=== PATIENT | female | born 1990 | race Caucasian/White ===

== ENCOUNTER 2016-11-27 07:28 | Day surgery (SDC) | payer MEDICAID, OTHER ==
[~2016-11-27 07:28] MED LIST: Bupivacaine 0.5% 30 ML SDV ONE; Lidocaine 0.5% 50 ML SDV ONE; Midazolam 1 MG/ML 2 ML SDV ONE; Propofol 200 MG/20 ML SDV ONE; fentaNYL 100 MCG/2 ML SDV ONE
[2016-11-27] MEDS ORDERED: Sodium Chloride 0.9% 5 ML Syringe FLUSH PRN (07:30)
[2016-11-27] MEDS ORDERED: Lactated Ringers 1,000 ML IV SCH (07:30)
[2016-11-27] MEDS ORDERED: Bacitracin/Neomycin/Polymyxin B Oint 0.9 GM U/D Packet ONE (07:54)
[2016-11-27] MEDS ORDERED: Propofol 200 MG/20 ML SDV ONE (07:54)
--- NOTE | 2016-11-27 08:09 | PCM.PN ---
- General Info Date of Service: 11/27/16 - Review of Systems Systems Review Comment:: 26 y/o female here for right carpal tunnel release. She has a history of carpal tunnel symptoms on her right hand not responding to conservative management. The site of the proposed surgery is confirmed with the patient and marked. I have discussed the proposed carpal tunnel release with the patient. Expectations and instructions reviewed. She agrees to proceed accepting risks. - Patient Data Vitals - Most Recent: Last Vital Signs Temp 97.9 F 11/27/16 08:04 Pulse 78 11/27/16 08:04 Resp 14 11/27/16 08:04 BP 108/67 11/27/16 08:04 Pulse Ox 100 11/27/16 08:04 Weight - Most Recent: 71.668 kg Lab Results Last 24 Hours: Laboratory Results - last 24 hr 11/27/16 Range/Units 07:45 Urine HCG, Qual Negative (NEGATIVE) Med Orders - Current: Current Medications Lactated Ringer's (Ringers, Lactated) 1,000 mls @ 50 mls/hr IV ASDIRECTED MAGDALENA Last Admin: 11/27/16 07:58 Dose: 50 mls/hr Sodium Chloride (Syrex Flush) 5 ml FLUSH Q8HR PRN PRN Reason: Keep Vein Open Discontinued Medications Fentanyl (Sublimaze) Confirm Administered Dose 100 mcg .ROUTE .STK-MED ONE Stop: 11/27/16 06:47 Lidocaine HCl (Xylocaine-Mpf 0.5%) Confirm Administered Dose 50 ml .ROUTE .STK- MED ONE Stop: 11/27/16 06:47 Midazolam HCl (Versed 1 Mg/Ml) Confirm Administered Dose 2 mg .ROUTE .STK-MED ONE Stop: 11/27/16 06:47 Propofol (Diprivan 20 Ml) Confirm Administered Dose 200 mg .ROUTE .STK-MED ONE Stop: 11/27/16 06:47 - Problem List Review Problem List Initiated/Reviewed/Updated: Yes - My Orders Last 24 Hours: My Active Orders 11/27/16 07:30 Antiembolic Devices [RC] PER UNIT ROUTINE Patient to Empty Bladder [RC] ASDIRECTED Peripheral IV Care [RC] . DIRECTED Verify Patient Consent Obtain [RC] ASDIRECTED Lactated Ringers [Ringers, Lactated] 1,000 ml IV ASDIRECTED Sodium Chloride 0.9% [Syrex Flush] 5 ml FLUSH Q8HR PRN Peripheral IV Insertion Adult [OM.PC] Routine Sequential Compression Device [OM.PC] Routine 11/27/16 Breakfast Nothing Per Oral Diet [DIET] - Assessment Assessment:: Right Carpal Tunnel Syndrome - Plan Plan:: Right Carpal Tunnel Release
[2016-11-27] MEDS ORDERED: fentaNYL 100 MCG/2 ML SDV IV ONE (08:26)
[2016-11-27] MEDS ORDERED: Propofol 200 MG/20 ML SDV IV ONE (08:26)
[2016-11-27] MEDS ORDERED: Midazolam 1 MG/ML 2 ML SDV IV ONE (08:26)
[2016-11-27] MEDS ORDERED: Ondansetron 4 MG/2 ML SDV IV ONE (08:26)
[2016-11-27] MEDS ORDERED: Bupivacaine 0.5% 30 ML SDV INFILT ONE ×2 (08:47)
[2016-11-27] MEDS ORDERED: Bacitracin/Neomycin/Polymyxin B Oint 0.9 GM U/D Packet TOP ONE (09:06)
--- NOTE | 2016-11-27 09:27 | PCM.OPNOTE ---
- General Post-Op/Procedure Note Date of Surgery/Procedure: 11/27/16 Operative Procedure(s): Right Carpal Tunnel Release Findings: Thick Right Transverse Carpal Ligament causing pressure on the underlying median nerve Pre Op Diagnosis: Right Carpal Tunnel Syndrome Post-Op Diagnosis: Same Anesthesia Technique: Regional Block Primary Surgeon: Bijan Rosario Pathology: none Output, Urine Amount: 0 EBL in mLs: 2 Complications: None Condition: Good
[2016-11-27 11:23] VITALS: BP 99/63
--- NOTE | 2016-11-27 17:13 | OR ---
DATE OF SURGERY: 11/27/2016 SURGEON: Bijan Rosario MD PREOPERATIVE DIAGNOSIS: Right carpal tunnel syndrome. POSTOPERATIVE DIAGNOSIS: Right carpal tunnel syndrome. OPERATION PERFORMED: Right carpal tunnel release. INDICATIONS FOR SURGERY: This 26-year-old female has developed symptoms of right carpal tunnel syndrome which are not responding well to conservative management. She has already had her left carpal tunnel release with good results and she comes today for right carpal tunnel release. FINDINGS: The patient's right transverse carpal ligament is thick causing pressure on the underlying median nerve. Structures otherwise appear normal. PROCEDURE IN DETAIL: The patient was taken to the operating room. She was given IV regional anesthesia of the right hand which was then sterilely prepped with Betadine and draped. A longitudinally oriented curvilinear incision was made along the palmar surface of the right wrist. Dissection proceeded down onto the transverse carpal ligament which was incised over and parallel to the course of the underlying median nerve. The ligament was completely divided and/or any potentially constricting bands proximally and distally at this level. Great care was used to avoid any injury to the underlying nerve or its branches. Once the nerve roots have been completely released and with no sign of any complicating process, the wound was irrigated and the skin was approximated with interrupted 4-0 Prolene in a mattress technique. Antibiotic ointment and sterile dressing were placed which was held in position with an Nestor bandage. The tourniquet was released, and the patient was taken from the operating room in satisfactory condition. ESTIMATED BLOOD LOSS: 2 mL. COMPLICATIONS: None. PROGNOSIS: Good. /[id number]/MODL MTDD
== END 2016-11-27 10:30 | disposition home or self-care (01) ==
LOC: KA.SDS 07:28
PROVIDERS: ATTEND Surgery
DX: G56.01 Carpal tunnel syndrome, right upper limb (principal); Z91.040 Latex allergy status; Z91.09 Other allergy status, other than to drugs and biological substances; Z79.899 Other long term (current) drug therapy; Z98.890 Other specified postprocedural states
CPT/HCPCS: 64721; 81025; J2250; J2405; J2704; J3010; J7120

== ENCOUNTER 2017-10-15 12:30 | Day surgery (SDC) | payer MEDICAID, OTHER ==
[~2017-10-15 12:30] MED LIST changes: -Bupivacaine 0.5% 30 ML SDV ONE; -Lidocaine 0.5% 50 ML SDV ONE; -Midazolam 1 MG/ML 2 ML SDV ONE; -fentaNYL 100 MCG/2 ML SDV ONE
[2017-10-15] MEDS ORDERED: Propofol 200 MG/20 ML SDV IV ONE (13:29)
[2017-10-15] MEDS ORDERED: Lactated Ringers 1,000 ML IV SCH (13:30)
[2017-10-15] MEDS ORDERED: Sodium Chloride 0.9% 5 ML Syringe FLUSH PRN (13:30)
--- NOTE | 2017-10-15 13:33 | PCM.PN ---
- General Info Date of Service: 10/15/17 - Review of Systems Systems Review Comment:: 27-year-old female referred for colonoscopy. She had a recent episode of a large amount of rectal bleeding. This is associated with lower abdominal pain. The bleeding has stopped but she does have continued lower abdominal pain. She is medically stable to proceed with colonoscopy today. There is been no significant recent change in her health status. I have discussed the proposed colonoscopy with the patient. Risks reviewed included but were not limited to bleeding and GI injury. She agrees to proceed. - Patient Data Vitals - Most Recent: Last Vital Signs Temp 98.6 F 10/15/17 13:04 Pulse 60 10/15/17 13:04 Resp 20 10/15/17 13:04 BP 106/39 L 10/15/17 13:04 Pulse Ox 100 10/15/17 13:04 Weight - Most Recent: 68.946 kg Lab Results Last 24 Hours: Laboratory Results - last 24 hr 10/15/17 Range/Units 13:00 HCG, Qual Negative (NEGATIVE) Med Orders - Current: Current Medications Lactated Ringer's (Ringers, Lactated) 1,000 mls @ 50 mls/hr IV ASDIRECTED MAGDALENA Last Admin: 10/15/17 13:06 Dose: 50 mls/hr Sodium Chloride (Syrex Flush) 5 ml FLUSH Q8HR PRN PRN Reason: Keep Vein Open Discontinued Medications Propofol (Diprivan 20 Ml) Confirm Administered Dose 400 mg .ROUTE .STK-MED ONE Stop: 10/15/17 12:28 - Problem List Review Problem List Initiated/Reviewed/Updated: Yes - My Orders Last 24 Hours: My Active Orders 10/15/17 13:30 Peripheral IV Care [RC] . DIRECTED Lactated Ringers [Ringers, Lactated] 1,000 ml IV ASDIRECTED Sodium Chloride 0.9% [Syrex Flush] 5 ml FLUSH Q8HR PRN Peripheral IV Insertion Adult [OM.PC] Routine 10/15/17 14:00 Patient to Empty Bladder [RC] ASDIRECTED 10/15/17 14:25 Verify Patient Consent Obtain [RC] ASDIRECTED 10/15/17 Breakfast Nothing Per Oral Diet [DIET] - Assessment Assessment:: Rectal bleeding - Plan Plan:: Colonoscopy
--- NOTE | 2017-10-15 14:02 | PCM.OPNOTE ---
- General Post-Op/Procedure Note Date of Surgery/Procedure: 10/15/17 Operative Procedure(s): Colonoscopy Findings: Normal Colon and Terminal Ileum Small internal hemorrhoids Pre Op Diagnosis: Rectal Bleeding Post-Op Diagnosis: Hemorrhoids Anesthesia Technique: MAC Primary Surgeon: Bijan Rosario Pathology: none Output, Urine Amount: 0 EBL in mLs: 0 Complications: None Condition: Good
[2017-10-15 18:39] VITALS: BP 98/64
--- NOTE | 2017-10-16 01:26 | OR ---
DATE OF SURGERY: 10/15/2017 SURGEON: Bijan Rosario MD REFERRING PROVIDER: YUNIER Arroyo PREOPERATIVE DIAGNOSIS: Rectal bleeding. POSTOPERATIVE DIAGNOSIS: Internal hemorrhoids. OPERATION PERFORMED: Colonoscopy. INDICATIONS FOR SURGERY: This 27-year-old female had a recent episode of a significant amount of rectal bleeding. This is associated with some lower abdominal pain. Diagnostic colonoscopy is planned. FINDINGS: No active bleeding is seen during today's exam. The patient does have small internal hemorrhoids. There are no visible signs of inflammation and the remainder of the colonic mucosa appears normal. The terminal ileum also appears normal without visible signs of inflammation or other pathology. PROCEDURE: The patient was taken to the operating room. She was given intravenous sedation, and with her in the left lateral decubitus position, digital rectal exam was performed showing no rectal masses. The Olympus colonoscope was inserted into the rectum. Retroflexed examination of the rectal canal was performed. The scope was then carefully advanced under direct visualization through the entire length of the colon until cecum was reached. Cecal acquisition was confirmed by noting the normal internal cecal anatomy including the appendiceal orifice and ileocecal valve. The ileocecal valve was cannulated and the terminal ileum was examined and found to be normal. The scope was then slowly withdrawn sequentially reexamining the colonic segments until the entire colon and rectum had been fully examined. The scope was then removed and the patient was taken from the operating room in satisfactory condition. ESTIMATED BLOOD LOSS: Zero. COMPLICATIONS: None. PROGNOSIS: Good. /[id number]/MODL
== END 2017-10-15 14:35 | disposition home or self-care (01) ==
LOC: KA.SDS 12:30
PROVIDERS: ATTEND Surgery
DX: K62.5 Hemorrhage of anus and rectum (principal); R10.30 Lower abdominal pain, unspecified; K64.8 Other hemorrhoids; F17.200 Nicotine dependence, unspecified, uncomplicated; F41.9 Anxiety disorder, unspecified; F32.9 Major depressive disorder, single episode, unspecified; F42.9 Obsessive-compulsive disorder, unspecified; Z79.899 Other long term (current) drug therapy; Z91.040 Latex allergy status
CPT/HCPCS: 36415; 84703; J2704; J7120

== ENCOUNTER 2018-07-31 05:27 | Emergency (ER) | payer SELFPAY ==
[2018-07-31 05:39] VITALS: BP 146/60
[2018-07-31] MEDS ORDERED: Sodium Chloride 0.9% 1,000 ML IV ONE (05:52)
[2018-07-31] MEDS ORDERED: Sodium Chloride 0.9% 10 ML Syringe FLUSH PRN (05:52)
[2018-07-31] MEDS ORDERED: Dexamethasone 4 MG/ML SDV IVPUSH ONE (05:53)
--- NOTE | 2018-07-31 05:59 | EDM.PDOC ---
ED HPI GENERAL MEDICAL PROBLEM - General Chief Complaint: General Stated Complaint: sore throat Time Seen by Provider: 07/31/18 05:47 Source of Information: Reports: Patient History Limitations: Reports: No Limitations - History of Present Illness INITIAL COMMENTS - FREE TEXT/NARRATIVE: Patient is a 28-year-old female who presents to the emergency department this morning with a complaint of difficulty swallowing and enlarged lymph nodes in neck. Patient states symptoms began 3 days ago and have progressively worsened. She's been taking acetaminophen and Motrin for relief. States she's had a low-grade fever. Patient woke up middle of night with difficulty swallowing and decided to present to the emergency department. Patient denies change in medication or consuming different food, history of allergic reaction, swallowing foreign body, any trauma, history of similar symptoms in the past, chest pain, or out of country travel. 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: Musculoskeletal History: Reports: Back Pain, Chronic, Other (See Below) Other Musculoskeletal History: Left carpal tunnel release Psychiatric History: Reports: ADD, ADHD - Infectious Disease History Infectious Disease History: Reports: Chicken Pox - Past Surgical History HEENT Surgical History: Reports: Adenoidectomy, Tonsillectomy Respiratory Surgical History: Reports: None GI Surgical History: Reports: Hernia Repair/Other Female Surgical History: Reports: Cystectomy Social & Family History - Family History Family Medical History: Noncontributory Cardiac: Reports: Heart Failure, High Cholesterol, Hypertension, PR Neurological: Reports: CVA Psychiatric: Reports: ADD, Anxiety, Autism, Depression Endocrine/Metabolic: Reports: Diabetes, type II Oncologic: Reports: Breast - Caffeine Use Caffeine Use: Reports: Coffee, Soda - Living Situation & Occupation Living situation: Reports: ED ROS GENERAL - Review of Systems Review Of Systems: ROS reveals no pertinent complaints other than HPI. Constitutional: Reports: Fever HEENT: Reports: Throat Pain, Throat Swelling Respiratory: Reports: No Symptoms Cardiovascular: Reports: No Symptoms Endocrine: Reports: No Symptoms GI/Abdominal: Reports: No Symptoms : Reports: No Symptoms Musculoskeletal: Reports: No Symptoms Skin: Reports: No Symptoms Neurological: Reports: No Symptoms Psychiatric: Reports: No Symptoms Hematologic/Lymphatic: Reports: No Symptoms Immunologic: Reports: No Symptoms ED EXAM, GENERAL - Physical Exam Exam: See Below Exam Limited By: No Limitations General Appearance: Alert, WD/WN, Mild Distress Eye Exam: Bilateral Eye: Normal Inspection Nose: Normal Inspection, Normal Mucosa, No Blood Throat/Mouth: Normal Lips, Normal Teeth, No Airway Compromise (. No stridor noted), Inflammation, Other (Tonsillar edema with exudates, trismus noted). No : Normal Inspection, Normal Oropharynx Head: Atraumatic, Normocephalic. No: Facial Swelling Neck: Lymphadenopathy (L), Lymphadenopathy (R) Respiratory/Chest: No Respiratory Distress, Lungs Clear, Normal Breath Sounds, No Accessory Muscle Use Cardiovascular: Regular Rate, Rhythm, No Murmur GI/Abdominal: Normal Bowel Sounds, Soft, Non-Tender Extremities: Normal Inspection Neurological: Alert, Oriented, Normal Cognition Psychiatric: Anxious Skin Exam: Warm, Dry, Intact, Normal Color, No Rash Lymphatic: Adenopathy (Extensive submandibular lymphadenopathy) Course - Vital Signs Last Recorded V/S: Last Vital Signs Temp 99.7 F 07/31/18 05:33 Pulse 106 H 07/31/18 05:33 Resp 16 07/31/18 05:33 BP 146/60 H 07/31/18 05:33 Pulse Ox 99 07/31/18 05:33 - Orders/Labs/Meds Orders: Active Orders 24 hr Category Date Time Status Peripheral IV Care [RC] . DIRECTED Care 07/31/18 05:52 Ordered CULTURE BLOOD [BC] Stat Lab 07/31/18 07:52 Ordered CULTURE BLOOD [BC] Stat Lab 07/31/18 07:52 Ordered Sodium Chloride 0.9% [Normal Saline] 50 ml Med 07/31/18 07:15 Active IV ASDIRECTED Sodium Chloride 0.9% [Saline Flush] Med 07/31/18 05:52 Ordered 10 ml FLUSH Q8HR PRN Blood Culture x2 Reflex Set [OM.PC] Stat Oth 07/31/18 07:51 Ordered Peripheral IV Insertion Adult [OM.PC] Routine Oth 07/31/18 05:52 Ordered Medication Orders Sodium Chloride (Normal Saline) 50 mls @ 200 mls/hr IV ASDIRECTED MAGDALENA Last Admin: 07/31/18 07:35 Dose: 200 mls/hr Sodium Chloride (Saline Flush) 10 ml FLUSH Q8HR PRN PRN Reason: keep vein open Last Admin: 07/31/18 06:08 Dose: 10 ml Labs: Laboratory Tests 07/31/18 07/31/18 Range/Units 06:00 06:00 WBC 29.09 H (5.00-10.00) 10^3/uL RBC 3.79 L (3.80-5.50) 10^6/uL Hgb 12.6 (12.0-16.0) g/dL Hct 37.5 (37.0-47.0) % MCV 98.9 H D (82.0-92.0) fL MCH 33.2 H (27.0-31.0) pg MCHC 33.6 (32.0-36.0) g/dL RDW 11.7 (11.5-14.5) % Plt Count 355 (150-400) 10^3/uL MPV 9.9 (7.4-10.4) fL Immature Gran % (Auto) 0.4 (0.0-5.0) % Neut % (Auto) 86.6 H (50.0-70.0) % Lymph % (Auto) 5.4 L (20.0-40.0) % [place] % (Auto) 7.1 (2.0-8.0) % Eos % (Auto) 0.4 L (1.0-3.0) % Baso % (Auto) 0.1 (0.0-1.0) % Immature Gran # (Auto) 0.13 (0.00-0.50) 10^3/uL Neut # (Auto) 25.18 H (2.50-7.00) 10^3/uL Lymph # (Auto) 1.56 (1.00-4.00) 10^3/uL [place] # (Auto) 2.06 H (0.10-0.80) 10^3/uL Eos # (Auto) 0.13 (0.10-0.30) 10^3/uL Baso # (Auto) 0.03 (0.00-0.10) 10^3/uL Sodium 138 (136-145) mmol/L Potassium 3.8 (3.3-5.3) mmol/L Chloride 102 (98-115) mmol/L Carbon Dioxide 23.9 (21.0-32.0) mmol/L Anion Gap 15.9 H (5-15) mmol/L BUN 9 (6-25) mg/dL Creatinine 0.61 (0.51-1.17) mg/dL Est Cr Clr Drug Dosing 116.45 mL/min Estimated GFR (MDRD) > 60 mL/min Glucose 104 H (75 - 99) mg/dL Calcium 9.3 (8.7-10.3) mg/dL Monoscreen Negative (NEGATIVE) Meds: Medications Generic Name Dose Route Start Last Admin Trade Name Freq PRN Reason Stop Dose Admin Sodium Chloride 50 mls @ 200 mls/hr 07/31/18 07:15 07/31/18 07:35 Normal Saline IV 200 mls/hr ASDIRECTED MAGDALENA Administration Sodium Chloride 10 ml 07/31/18 05:52 07/31/18 06:08 Saline Flush FLUSH 10 ml Q8HR PRN Administration keep vein open Discontinued Medications Generic Name Dose Route Start Last Admin Trade Name Freq PRN Reason Stop Dose Admin Dexamethasone 8 mg 07/31/18 05:53 07/31/18 06:08 Dexamethasone IVPUSH 07/31/18 05:54 8 mg ONETIME ONE Administration Hydromorphone HCl 0.5 mg 07/31/18 07:59 Dilaudid IVPUSH 07/31/18 08:00 ONETIME ONE Sodium Chloride 1,000 mls @ 999 mls/hr 07/31/18 05:52 07/31/18 06:08 Normal Saline IV 07/31/18 06:52 999 mls/hr .BOLUS ONE Administration Iopamidol 75 ml 07/31/18 07:11 07/31/18 07:35 Isovue-370 (76%) IVPUSH 07/31/18 07:12 75 ml ONETIME ONE Administration Ondansetron HCl 4 mg 07/31/18 07:59 Zofran IVPUSH 07/31/18 08:00 ONETIME ONE - Radiology Interpretation Free Text/Narrative:: CT neck with IV contrast shows developing abscess with collection extending to retropharyngeal space inferiorly to the level of C3, C4 - Re-Assessments/Exams Free Text/Narrative Re-Assessment/Exam: 07/31/18 08:35 patient afebrile, taking by mouth fluids and appears nontoxic, vital signs are stable. Discussed case with Dr. Charlton hospitalist at [facility] and Dr. Storey, ENT and patient will be transferred via EMS ground to [facility] Departure - Departure Time of Disposition: 08:37 Disposition: DC/Tfer to [facility] 02 Condition: Fair Clinical Impression: Pharyngeal abscess Leukocytosis Qualifiers: Leukocytosis type: unspecified Qualified Code(s): D72.829 - Elevated white blood cell count, unspecified - Discharge Information Forms: ED Department Discharge, Interfacility Transfer EMTALA - My Orders Last 24 Hours: My Active Orders 07/31/18 05:52 Peripheral IV Care [RC] . DIRECTED Sodium Chloride 0.9% [Saline Flush] 10 ml FLUSH Q8HR PRN Peripheral IV Insertion Adult [OM.PC] Routine 07/31/18 07:15 Sodium Chloride 0.9% [Normal Saline] 50 ml IV ASDIRECTED 07/31/18 07:51 Blood Culture x2 Reflex Set [OM.PC] Stat 07/31/18 07:52 CULTURE BLOOD [BC] Stat CULTURE BLOOD [BC] Stat - Assessment/Plan Last 24 Hours: My Active Orders 07/31/18 05:52 Peripheral IV Care [RC] . DIRECTED Sodium Chloride 0.9% [Saline Flush] 10 ml FLUSH Q8HR PRN Peripheral IV Insertion Adult [OM.PC] Routine 07/31/18 07:15 Sodium Chloride 0.9% [Normal Saline] 50 ml IV ASDIRECTED 07/31/18 07:51 Blood Culture x2 Reflex Set [OM.PC] Stat 07/31/18 07:52 CULTURE BLOOD [BC] Stat CULTURE BLOOD [] Stat Assessment:: Pharyngeal abscess Plan: Transferred to [facility]
[2018-07-31 06:54] LABS: ANION GAP 15.9 mmol/L (5-15); CHLORIDE,CL 102 mmol/L (98-115); SODIUM,NA 138 mmol/L (136-145)
[2018-07-31] MEDS ORDERED: Iopamidol 755 Mg/ML 75 ML Bottle IVPUSH ONE (07:11)
[2018-07-31] MEDS ORDERED: Sodium Chloride 0.9% 50 ML IV SCH (07:15)
--- NOTE | 2018-07-31 07:53 | CT ---
[id number] CT/CT Neck Soft Tissue W IV Exam: CT Neck Soft Tissue W IV Indication:DIFFICULTY SWALLOWING. Comparison: No prior imaging for comparison. Discussion: There is soft tissue thickening and edema throughout the oropharynx extending inferiorly the larynx. Left of midline there is phlegmonous change and developing abscess measuring 18 mm AP by 23 mm craniocaudal by 15 mm transverse (seen best on coronal series 4 images 18-20). Posteriorly, this developing collection extends to the midline into the retropharyngeal space and extends inferiorly to the level of C3-4 (sagittal series 5 image 38). There are numerous reactive appearing bilateral cervical chain lymph nodes left greater than right as well. No evidence of mediastinal extension. Lung apices are clear. No radiographic evidence of osteolysis/discitis. Impression: Left peritonsillar phlegmonous change and developing abscess with small amount fluid extension into the retropharyngeal/prevertebral space at level C3-4, described above. Results relayed to Mart Jackson at time of dictation Homero Romero MD 07/31/18 0752 Thank you for allowing us to participate in the care of your patient.
[2018-07-31] MEDS ORDERED: HYDROmorphone 1 MG/ML Syringe IVPUSH ONE (07:59)
[2018-07-31] MEDS ORDERED: Ondansetron 4 MG/2 ML SDV IVPUSH ONE (07:59)
[2018-07-31] MEDS ORDERED: Ampicillin/Sulbactam Na 3 GM in Sodium Chloride 0.9% 100 ML IV ONE (08:13)
[2018-07-31] MEDS ORDERED: Sodium Chloride 0.9% 1,000 ML IV SCH (08:15)
== END 2018-07-31 11:45 ==
LOC: KA.ED 05:27
DX: J39.1 Other abscess of pharynx (principal); D72.829 Elevated white blood cell count, unspecified; F17.200 Nicotine dependence, unspecified, uncomplicated; Z91.040 Latex allergy status; Z91.09 Other allergy status, other than to drugs and biological substances
CPT/HCPCS: 36415; 70491; 80048; 85025; 86308; 87040; 96365; 96375; 99284; 99285-25; J0295; J1100; J1170; J2405; J7030; J7050; Q9967

== ENCOUNTER 2019-07-26 09:32 | Emergency (ER) | payer MEDICAID ==
[2019-07-26 09:50] VITALS: BP 110/66; PULSE 120
--- NOTE | 2019-07-26 09:58 | EDM.PDOC ---
ED HPI GENERAL MEDICAL PROBLEM - General Chief Complaint: General Stated Complaint: Water broke Time Seen by Provider: 07/26/19 09:32 Source of Information: Reports: Patient History Limitations: Reports: No Limitations - History of Present Illness INITIAL COMMENTS - FREE TEXT/NARRATIVE: 29 YO WF [id number] 35 weeks presents to ER after her water broke this am. Pt reports she has had no contractions of note today. Pt denies any abdominal pain. Pt had an episode of labor at 31 weeks and was seen by OB, stayed overnight in hospital for steroids and magnesium. Pt denies any discomfort at this time. FHT-180's, [place] monitor- no contractions x 30 minutes. Group B strep- neg, positive fern test Onset: Today Location: Reports: Generalized Severity: Mild Improves with: Reports: None Worsens with: Reports: None Associated Symptoms: Reports: No Other Symptoms - Related Data Allergies Allergy/AdvReac Type Severity Reaction Status Date / Time adhesive tape Allergy Other Verified 07/31/18 05:28 latex Allergy Anaphylactic Verified 07/31/18 05:28 Shock No Known Drug Allergies Allergy Other Verified 07/31/18 05:28 Home Meds: Home Meds Hydrocodone/Acetaminophen [Hydrocodon-Acetaminophen 5-325] 0.5 - 1 tab PO Q6HR PRN 10/14/17 [History] Past Medical History HEENT History: Reports: None Other Respiratory History: Everyday smoker. Gastrointestinal History: Reports: Hiatal Hernia Genitourinary History: Reports: UTI, Recurrent [employer] History: Reports: Musculoskeletal History: Reports: Back Pain, Chronic, Other (See Below) Other Musculoskeletal History: Left carpal tunnel release Psychiatric History: Reports: ADD, ADHD - Infectious Disease History Infectious Disease History: Reports: Chicken Pox - Past Surgical History HEENT Surgical History: Reports: Adenoidectomy, Tonsillectomy Respiratory Surgical History: Reports: None GI Surgical History: Reports: Hernia Repair/Other Female Surgical History: Reports: Cystectomy Social & Family History - Family History Family Medical History: Noncontributory Cardiac: Reports: Heart Failure, High Cholesterol, Hypertension, OR Neurological: Reports: CVA Psychiatric: Reports: ADD, Anxiety, Autism, Depression Endocrine/Metabolic: Reports: Diabetes, type II Oncologic: Reports: Breast - Caffeine Use Caffeine Use: Reports: Coffee, Soda - Living Situation & Occupation Living situation: Reports: ED ROS GENERAL - Review of Systems Review Of Systems: See Below Constitutional: Reports: No Symptoms HEENT: Reports: No Symptoms Respiratory: Reports: No Symptoms Cardiovascular: Reports: No Symptoms Endocrine: Reports: No Symptoms GI/Abdominal: Reports: No Symptoms Musculoskeletal: Reports: No Symptoms Skin: Reports: No Symptoms Neurological: Reports: No Symptoms Psychiatric: Reports: No Symptoms Hematologic/Lymphatic: Reports: No Symptoms Immunologic: Reports: No Symptoms ED EXAM, GENERAL - Physical Exam Exam: See Below Exam Limited By: No Limitations General Appearance: Alert, WD/WN, No Apparent Distress Eye Exam: Bilateral Eye: PERRL Nose: Normal Inspection, Normal Mucosa, No Blood Throat/Mouth: Normal Inspection, Normal Lips, Normal Teeth, Normal Gums, Normal Oropharynx, Normal Voice, No Airway Compromise Head: Atraumatic, Normocephalic Neck: Normal Inspection, Supple, Non-Tender, Full Range of Motion Respiratory/Chest: No Respiratory Distress, Lungs Clear, Normal Breath Sounds, No Accessory Muscle Use, Chest Non-Tender Cardiovascular: Normal Peripheral Pulses, Regular Rate, Rhythm, No Edema, No Gallop, No JVD, No Murmur, No Rub GI/Abdominal: Normal Bowel Sounds, Soft, Non-Tender, No Organomegaly, No Distention, No Abnormal Bruit, No Mass (Female) Exam: Normal External Exam, Normal Speculum Exam, Normal Bimanual Exam, Cervical Dilatation, Cervical Discharge, Heart Tones Back Exam: Normal Inspection, Full Range of Motion, NT Extremities: Normal Inspection, Normal Range of Motion, Non-Tender, Normal Capillary Refill, No Pedal Edema Neurological: Alert, Oriented, CN II-XII Intact, Normal Cognition, Normal Gait, Normal Reflexes, No Motor/Sensory Deficits Psychiatric: Normal Affect, Normal Mood Skin Exam: Warm, Dry, Intact, Normal Color, No Rash Lymphatic: No Adenopathy Course - Orders/Labs/Meds Orders: Active Orders 24 hr Category Date Time Status FERN TEST [BF] Stat Lab 07/26/19 09:49 Ordered - Radiology Interpretation Free Text/Narrative:: +fern test 5cm dilated no contraction no abdominal pain FHT-180s Departure - Departure Time of Disposition: 10:02 Disposition: DC/Tfer to Acute Hospital 02 Condition: Good Clinical Impression: labor in third trimester Qualifiers: labor delivery status: without delivery Qualified Code(s): O60.03 - labor without delivery, third trimester - Discharge Information Referrals: Cris Barbosa MD [Primary Care Provider] - Forms: ED Department Discharge, Interfacility Transfer EMTALA - My Orders Last 24 Hours: My Active Orders 07/26/19 09:49 FERN TEST [BF] Stat - Assessment/Plan Last 24 Hours: My Active Orders 07/26/19 09:49 FERN TEST [BF] Stat Assessment:: 1. labor Plan: 1. transfer to [facility]- Dr Eugene 2. supportive care 3. group B strep negative
== END 2019-07-26 10:10 ==
LOC: KA.ED 09:32
DX: O60.03 Preterm labor without delivery, third trimester (principal); O99.333 Smoking (tobacco) complicating pregnancy, third trimester; F17.200 Nicotine dependence, unspecified, uncomplicated; Z91.040 Latex allergy status; Z3A.35 35 weeks gestation of pregnancy
CPT/HCPCS: 82274; 99285